=== PATIENT | male | born 1985 | race Caucasian/White ===

== ENCOUNTER 2016-09-02 23:31 | Emergency (ER) | payer OTHER ==
[~2016-09-02] VITALS: Ht 167.6 cm; Wt 165.4 kg
[~2016-09-02 23:31] MED LIST: DICY20TA10 PO; HYOS0.1218 SL; ISON300T4 PO; OMEP40CA36 PO; PYRI250T8 PO; SERT20OR6 PO
[2016-09-02] MEDS ORDERED: 0.9% Sodium Chloride 1,000 ML IV ONE (23:59)
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
[2016-09-03] VITALS: BP 154/91; PULSE 100; RESP 22; O2SAT 94
[2016-09-03] MEDS ORDERED: Ondansetron 2 mg/mL 2 mL Inj IVPUSH PRN
[2016-09-03] MEDS ORDERED: HYDROmorphone 0.5 mg/0.5 mL iSecure Syringe IVPUSH PRN
[2016-09-03 00:20] LABS: Mean Corpuscular Hemoglobin 28.6 pg (27.0-35.0); Mean Corpuscular Volume 87 fL (81-100)
[2016-09-03 00:21] LABS: BASOPHILS % (AUTO) 0 % (0-3); EOSINOPHILS % (AUTO) 1 % (0-5); MONOCYTES % (AUTO) 7 % (4-12); NEUTROPHILS % (AUTO) 62 % (40-74); Platelet Count 218 bil/L (150-400)
[2016-09-03 00:29] LABS: INR 0.95 ratio
[2016-09-03 01:26] LABS: APPEARANCE,URINE CLEAR (CLEAR,HAZY); COLOR,URINE YELLOW (YELLOW); OCCULT BLOOD,URINE NEGATIVE (NEGATIVE); PH,URINE 5.5 (5.0-8.0); UROBILINOGEN,URINE NORMAL (NORMAL)
[2016-09-03] MEDS ORDERED: IBUP800T28 PO (01:32)
[2016-09-03 01:49] VITALS: BP 154/91; PULSE 100; RESP 22; O2SAT 94
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
== END 2016-09-03 01:50 | disposition home or self-care (01) ==
LOC: EDBD 23:31 → SED 23:31
DX: M54.2 Cervicalgia (principal); R07.2 Precordial pain; M54.5 Low back pain; V48.5XXA Car driver injured in noncollision transport accident in traffic accident, initial encounter; Y93.89 Activity, other specified; Y99.8 Other external cause status; Y92.410 Unspecified street and highway as the place of occurrence of the external cause; K21.9 Gastro-esophageal reflux disease without esophagitis; G89.29 Other chronic pain
CPT/HCPCS: 36415; 70450; 71010; 71260; 72125; 74177; 80053; 81001; 85025; 85610; 85730; 93005; 96361; 96374; 96375; 99285; G0390; G0480; J1170; J2405; J7030; Q9967